=== PATIENT | male | born 1980 | race Two or more races ===

== ENCOUNTER 2016-11-30 18:19 | Emergency (ER) | payer OTHER ==
--- NOTE | 2016-11-30 18:28 | EDPHY ---
H & P Time Seen by Provider: 11/30/16 18:21 HPI/ROS: CHIEF COMPLAINT: Right hand and ring finger injury HISTORY OF PRESENT ILLNESS: Was finger wrestling with his yesterday and felt a pop but today it is finger is swollen and painful. He can't flex or extend it without pain. No skin changes no fever. REVIEW OF SYSTEMS: No other injuries PAST MEDICAL HISTORY: Social history: Primary language is Slovak, foreign language interpreter present. General Appearance: Alert and conversant, cooperative. Right hand shows swelling of the ring finger and some ecchymosis especially over the PIP. Sensation intact and capillary refill intact. He can move it but he can' t flex or extend much because of pain. Remainder of the hand is nontender. Emergency Department course/MDM: Patient took ibuprofen. Ice pack is provided. X-ray of the right hand. X-rays reviewed on the computer system with the patient and his . Splinted in the emergency department and referred to Orthopedics, patient and family warned that open reduction internal fixation is possibly going to be recommended. Constitutional: Initial Vital Signs Temperature (C) 37.2 C 11/30/16 18:28 Heart Rate 69 11/30/16 18:28 Respiratory Rate 16 11/30/16 18:28 Blood Pressure 125/95 H 11/30/16 18:28 O2 Sat (%) 95 11/30/16 18:28 O2 Delivery Mode Room Air Allergies/Adverse Reactions: No Known Allergies Allergy (Unverified 11/30/16 18:31) Home Medications: Medication Instructions Recorded NK [No Known Home Meds] 11/30/16 MDM/Departure - MDM Diagnostics: Right hand x-ray personally interpreted shows proximal phalanx fracture displaced at the base. Procedures: Procedure: Splint placement. Aluminum foam right ring finger splint was applied. After application of the splint I returned and re-examined the patient. The splint was adequately immobilizing the joint and distal to the splint the patient's circulation and sensation was intact. - Depart Disposition: Home, Routine, Self-Care Clinical Impression: Fracture of phalanx of ring finger Qualifiers: Encounter type: initial encounter Fracture type: closed Phalanx: proximal Fracture alignment: displaced Laterality: right Qualified Code(s): S62.614A - Displaced fracture of proximal phalanx of right ring finger, initial encounter for closed fracture Condition: Good Instructions: Finger Fracture (ED) Referrals: [facility] [Other] - As per Instructions Maninder Huntley MD [Medical Doctor] - 2-3 days, call for appt. (Call orthopedic surgeon Dr. Huntley's office tomorrow and tell them you are referred from the emergency department for a finger fracture that may need operative fixation.)
[2016-11-30 18:30] VITALS: O2SAT 95
[2016-11-30] MEDS ORDERED: HYDROCOD/APAP 5/325 PREPACK#6 BTL TAKEHOME ONE (18:49)
[2016-11-30 18:55] VITALS: BP 131/86; PULSE 102; RESP 14; TEMP 97.9
== END 2016-11-30 18:55 | disposition home or self-care (01) ==
DX: S62.614A Displaced fracture of proximal phalanx of right ring finger, initial encounter for closed fracture (principal); X58.XXXA Exposure to other specified factors, initial encounter; Y93.72 Activity, wrestling
CPT/HCPCS: L3925

== ENCOUNTER 2016-12-16 07:15 | Day surgery (SDC) | payer OTHER ==
[2016-12-16] MEDS ORDERED: BUPIVACAINE 0.25% 30 ML SDV ONE (07:25)
[2016-12-16] MEDS ORDERED: BACITRACIN 50,000 UNITS/10 ML SYR IRR ONE (07:25)
[2016-12-16] MEDS ORDERED: LIDOCAINE 1% 2 ML INJ ONE (07:55)
[2016-12-16] MEDS ORDERED: LIDOCAINE 1% 5 ML SDV ID PRN (08:10)
[2016-12-16] MEDS ORDERED: LR 1,000 ML IV ONE (08:10)
[2016-12-16] MEDS ORDERED: MIDAZOLAM 2 MG/2 ML VIAL ONE ×2 (08:14→08:34)
[2016-12-16] MEDS ORDERED: CITRIC ACID/SODIUM CITRATE 30 ML UDCUP ONE (08:17)
[2016-12-16] MEDS ORDERED: FAMOTIDINE 20 MG/2 ML SDV ONE (08:18)
[2016-12-16] MEDS ORDERED: PROPOFOL/EMULSION 500 MG/50 ML BOTTLE IV ONE (08:19)
[2016-12-16] MEDS ORDERED: fentaNYL 100 MCG/2 ML INJ ONE ×5 (08:19→10:26)
[2016-12-16] MEDS ORDERED: FAMOTIDINE 20 MG/2 ML SDV IVP ONE (08:30)
[2016-12-16] MEDS ORDERED: FAMOTIDINE 20 MG/NACL 50 ML IV ONE (08:30)
[2016-12-16] MEDS ORDERED: CITRIC ACID/SODIUM CITRATE 30 ML UDCUP PO ONE (08:30)
[2016-12-16] MEDS ORDERED: ceFAZolin 2 GM/DEXTROSE 100 ML IV ONE (08:30)
[2016-12-16] MEDS ORDERED: PROPOFOL 200 MG/20 ML VIAL ONE (08:38)
[2016-12-16] MEDS ORDERED: SUCCINYLCHOLINE CHLORIDE*ANESTHESIA ONLY*200 MG/10 ML SYR IVP ONE (09:38)
[2016-12-16] MEDS ORDERED: ROCURONIUM 50 MG/5 ML VIAL ONE (09:38)
[2016-12-16] MEDS ORDERED: ONDANSETRON 4 MG/2 ML VIAL ONE (09:38)
[2016-12-16] MEDS ORDERED: LIDOCAINE 0.5% 50 ML SDV ONE (09:38)
[2016-12-16] MEDS ORDERED: OXYCODONE/APAP 5/325 TAB ONE (11:05)
--- NOTE | 2016-12-16 20:03 | GOP ---
[f rep st] OPERATIVE REPORT DATE OF OPERATION: 12/16/2016 SURGEON: Maninder Huntley MD PREOPERATIVE DIAGNOSIS: Right ring finger proximal phalanx intra-articular fracture. POSTOPERATIVE DIAGNOSIS: Right ring finger proximal phalanx intra-articular fracture. PROCEDURE PERFORMED: Open reduction internal fixation, right ring finger proximal phalanx intra-art icular fracture. FINDINGS: Anatomical reduction was achieved. The bone fragments were held in a reduced position wi th [employer] titanium 1.5 mm modular hand screws. INDICATIONS: The patient is a 35-year-old gentleman who sustained the above injury in a finger wres tling incident with a friend. Due to the displaced nature of this fracture and subluxation of his j oint, he was brought to the operating for definitive surgical management. DESCRIPTION OF PROCEDURE: After routinely checking the patient's identification and consent, and th e successful induction of [employer] block anesthetic. The patient's right upper extremity was prepped an d draped in the usual standard fashion. A surgical time-out was completed. A midline longitudinal dorsal incision over the ring finger metacarpophalangeal joint was carried sharply through skin. It was spread bluntly through the subcutaneous layer. I dissected down to the level of the extensor t endon. I split the extensor tendon sharply in the midline and the 2 halves. I then incis ed the joint capsule longitudinally, slightly offset from extensor tendon incision. I exposed the m etacarpal head and the proximal phalanx articular surfaces. I supinated the ring finger and then mo bilized the fracture fragment. I curetted fibrous material free from the fracture gap. At approxim ately this time the patient became somewhat agitated due to the tourniquet pressure from the [employer] bl ock. We could not calm him with sedation. As such, he was converted to a general anesthetic. I re duced the fracture fragment with the use of dental picks and pointed bone tenaculums. I used the Fl uoroScan unit to check that this was anatomically reduced. Satisfied with this, I then placed 2 Syn thes 1.5 mm titanium lag screws from the modular handset using standard AO lag screw technique. We irrigated the wound thoroughly. The FluoroScan unit was used to verify fracture reduction was anato mical and hardware position was appropriate. Satisfied with this, the wounds were irrigated thoroug hly. I closed the capsule with buried knot sutures of 4-0 Vicryl. I closed the extensor tendon alex gitudinal split with 4-0 Vicryl with a superficial knots, and then the skin was closed with 5-0 nylo n interrupted skin sutures. 0.25% Marcaine was infiltrated around the wound for postoperative comfo rt, and a sterile bulky dressing was applied followed by an ulnar gutter plaster splint encompassing the long ring and small fingers. The patient tolerated the procedure well. There were no complica tions. /[id number]/MODL
== END 2016-12-16 12:10 | disposition home health service (06) ==
LOC: FSGY 07:15
PROVIDERS: ATTEND Orthopaedic Surgery Hand Surgery
PROC: 0PST04Z Reposition Right Finger Phalanx with Internal Fixation Device, Open Approach (ICD-10-PCS; principal; 2016-12-16 09:30)
DX: S62.614A Displaced fracture of proximal phalanx of right ring finger, initial encounter for closed fracture (principal); X50.9XXA Other and unspecified overexertion or strenuous movements or postures, initial encounter; Y93.72 Activity, wrestling
CPT/HCPCS: C1713; J0330; J0690; J2250; J2405; J2704; J3010